=== PATIENT | male | born 1960 | race Caucasian/White ===

== ENCOUNTER 2018-02-08 18:11 | Emergency (ER) | payer OTHER ==
[2018-02-08] MEDS ORDERED: LORazepam INJ* 2 MG/ML 1 ML VIAL IV PUSH ONE (18:51)
[2018-02-08 18:56] LABS: ABS Basophils 0.1 10^3/ul (0-0.2); ABS Eosinophils 0.4 10^3/ul (0-0.6); ABS Lymphocytes 2.2 10^3/ul (1.0-4.8); ABS Monocytes 0.7 10^3/ul (0-0.8); ABS Neutrophils 5.9 10^3/ul (1.5-7.7); ABS Nucleated RBC 0 10^3/ul; Eosinophil % 4.6 % (0-6); Hematocrit 41 % (42-52); Hemoglobin 14.9 g/dl (14.0-18.0); Lymphocyte % 23.6 % (25-47); Mean Corpuscular HGB Conc 36 g/dl (31-36); Mean Corpuscular Hemoglobin 34 pg (27-31); Mean Corpuscular Volume 93 fL (80-94); Mean Platelet Volume 8.1 um3 (7.4-10.4); Nucleated Red Blood Cells % 0; Platelet Count 206 10^3/ul (150-450); Red Blood Count 4.43 10^6/ul (4.00-5.40); Red Cell Distribution Width 13 % (10.5-15); White Blood Count 9.2 10^3/ul (3.5-10.8)
[2018-02-08 19:15] LABS: EGFR Non-African American 78.2 (>60)
[2018-02-08] MEDS ORDERED: Iohexol 300* (CONTRAST) 10 ML SDV IV ONE (19:19)
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
[2018-02-08] MEDS ORDERED: Morphine VIAL* 4 MG/ML VIAL (1 ml vial) IV ONE (19:58)
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
[2018-02-08] MEDS ORDERED: oxyCODONE/Acetamin 5/325 MG* TAB PO ONE (20:53)
--- NOTE | 2018-02-08 21:02 | RAD ---
INDICATION: Right shoulder injury. TECHNIQUE: 4 views of the right shoulder were obtained. There is material or clothing which projects over the shoulders limiting the exam slightly. FINDINGS: The bones are in normal alignment. No fracture is seen. There is mild osteoarthritic change in the acromioclavicular and glenohumeral joints. IMPRESSION: NO EVIDENCE OF FRACTURE.
[2018-02-08 21:34] VITALS: BP 166/90
== END 2018-02-08 21:34 | disposition home or self-care (01) ==
LOC: ED 18:11
DX: M54.2 Cervicalgia (principal); S09.90XA Unspecified injury of head, initial encounter; M25.511 Pain in right shoulder; Z72.0 Tobacco use; V89.2XXA Person injured in unspecified motor-vehicle accident, traffic, initial encounter; Y92.9 Unspecified place or not applicable; R10.30 Lower abdominal pain, unspecified; R21 Rash and other nonspecific skin eruption; Z88.0 Allergy status to penicillin
CPT/HCPCS: 36415; 70450; 71260; 72125; 74177; 80053; 85025; 96374; 96375; 99284; A9270-GY; J2060; Q9967

== ENCOUNTER 2019-09-13 06:09 | Emergency (ER) | payer SELFPAY ==
[2019-09-13] MEDS ORDERED: HYDROcodone/ACETAMIN 5-325 MG* 1 TAB PO ONE (06:26)
--- NOTE | 2019-09-13 07:10 | ED ---
Upper Extremity Pain - HPI Summary HPI Summary: This patient is a 59-year-old male who presents to the ED with a crush injury to the right hand. He states he crushed the hand between a steel bar and a trash dumpster at work. He is endorsing pain to the entire hand, worsening pain to the right thumb. Pain is 9/10, constant and throbbing. Otherwise healthy. Denies blood thinners. Bleeding has stopped and is well controlled on arrival. Tetanus is not UTD. - History of Current Complaint Chief Complaint: EDExtremityUpper Stated Complaint: HAND CRUSHED PER PT Time Seen by Provider: 09/13/19 06:21 Hx Obtained From: Patient Mechanism Of Injury: Other - crush injury Onset/Duration: Started Hours Ago Timing: Constant Severity Initially: Severe Severity Currently: Severe Pain Location: Other: - thumb - Right Character: Aching Aggravating Factor(s): Nothing Alleviating Factor(s): Nothing Associated Signs & Symptoms: Negative: Swelling, Bruising Related History: Occupational Injury, Dominant Hand Right - Risk Factors Non-Orthopedic Risk Factor: Negative DVT Risk Factors: Negative Compartment Syndrome Risk Factors: Pain - Allergies/Home Medications Allergies/Adverse Reactions: Allergies Allergy/AdvReac Type Severity Reaction Status Date / Time nabumetone [From Relafen] Allergy Bleeding Verified 09/13/19 06:11 Penicillins Allergy Rash Verified 09/13/19 06:11 PMH/Surg Hx/FS Hx/Imm Hx Previously Healthy: Yes Endocrine/Hematology History: Denies: Hx Diabetes Cardiovascular History: Denies: Hx Hypertension - Surgical History Surgery Procedure, Year, and Place: RT SHOULDER - Immunization History Hx Pertussis Vaccination: No Immunizations Up to Date: Yes Infectious Disease History: No Infectious Disease History: Denies: Traveled Outside the [place] in Last 30 Days - Family History Known Family History: Positive: Hypertension - Social History Occupation: Unemployed Lives: With Family Alcohol Use: Occasionally Hx Substance Use: No Substance Use Type: Reports: None Hx Tobacco Use: Yes Smoking Status (MU): Heavy Every Day Tobacco Smoker Review of Systems Negative: Fever, Chills, Fatigue, Skin Diaphoresis Negative: Palpitations, Chest Pain Negative: Shortness Of Breath, Cough Genitourinary: Negative Positive: no symptoms reported, see HPI Positive: Arthralgia - right thumb Positive: Other - laceration .5cm to the radial side of the distal tip of the thumb Neurological: Negative All Other Systems Reviewed And Are Negative: Yes Physical Exam Triage Information Reviewed: Yes Vital Signs On Initial Exam: Initial Vitals Temp Pulse Resp BP Pulse Ox 98.1 F 91 20 188/94 95 09/13/19 06:10 09/13/19 06:10 09/13/19 06:10 09/13/19 06:10 09/13/19 06:10 Vital Signs Reviewed: Yes Appearance: Positive: Well-Appearing, Well-Nourished Skin: Positive: Warm, Skin Color Reflects Adequate Perfusion Head/Face: Positive: Normal Head/Face Inspection Eyes: Positive: EOMI, Conjunctiva Clear Neck: Positive: Supple, No Lymphadenopathy Respiratory/Lung Sounds: Positive: Clear to Auscultation, Breath Sounds Present Cardiovascular: Positive: Pulses are Symmetrical in both Upper and Lower Extremities Musculoskeletal: Positive: Other - right distal tip of thumb - nail avulsion with laceration to the radial side Psychiatric: Positive: Affect/Mood Appropriate Procedures - Sedation Patient Received Moderate/Deep Sedation with Procedure: No Diagnostics - Vital Signs Vital Signs Temp Pulse Resp BP Pulse Ox 09/13/19 06:10 98.1 F 91 20 188/94 95 - Laboratory Lab Statement: Any lab studies that have been ordered have been reviewed, and results considered in the medical decision making process. Course/Dx - Course Course Of Treatment: During this course treatment, the patient's evaluated for right thumb injury. This was a crush injury to the distal tip of the R thumb which avulsed the nail bed out. On physical examination, he has a laceration coming from the radial side of the nailbed which measures approximately 0.5 cm in length. Xray obtained which shows a displaced possibly open fracture of the tuft of the distal phalanx of the thumb. Bactrim given. Pain medication given. Cleansed and washed out wound thouroughly. Attempted to suture the radial side of the thumb with lac, but patient eventually refused as was unable to tolerate pain and refused further treatment. Xeroform applied. Thumb dressing applied with splint. Care instructions given. Will f/u with ortho [facility]. Assessment/Plan: f/u with ortho - hand - keep wound cleansed daily and wrapped. Keep thumb with splint applied - Diagnoses Differential Diagnosis/HQI/PQRI: Positive: Fracture (Open) Provider Diagnoses: Open fracture of tuft of distal phalanx of finger - Physician Notifications Instructed by Provider To: Have Pt Call For Appt. - today for appt Discharge ED - Sign-Out/Discharge Documenting (check all that apply): Patient Departure - Discharge Plan Condition: Stable Disposition: HOME Prescriptions: HydroCODONE/Acetamin 10/325 NF [Acushnet 10/325 (NF)] 1 - 2 tab PO SEE INSTRUCTIONS #12 tab MDD 6 Patient Education Materials: Thumb Fracture (ED), Nail Avulsion (ED) Forms: *Work Release Referrals: John Esparza MD [Medical Doctor] - No Primary Care Phys,NOPCP [Primary Care Provider] - Oanh Soriano MD [Medical Doctor] - Additional Instructions: Bactrim twice daily x 3 days Hydrocodone - 1-2 tabs every 6 hours as needed for pain, not to exceed 6 total per day Keep the wound cleansed and clean daily - keep covered Keep splint applied until follow up with orthopedics I have given you a referral - call to make an appt Also, call to make an appt with dermatology - Billing Disposition and Condition Condition: STABLE Disposition: Home
[2019-09-13] MEDS ORDERED: Tetan/Diph/Pertus SYR(Tdap)* 0.5 ML SYR(BOOSTRIX) use SYR contains LATEX IM ONE (07:33)
[2019-09-13 09:03] VITALS: BP 167/96
== END 2019-09-13 09:01 | disposition home or self-care (01) ==
LOC: ED 06:09
DX: S62.521B Displaced fracture of distal phalanx of right thumb, initial encounter for open fracture (principal); W23.0XXA Caught, crushed, jammed, or pinched between moving objects, initial encounter; Y93.89 Activity, other specified; Y92.9 Unspecified place or not applicable; Y99.0 Civilian activity done for income or pay; Z23 Encounter for immunization; Z88.6 Allergy status to analgesic agent; Z88.0 Allergy status to penicillin; F17.200 Nicotine dependence, unspecified, uncomplicated
CPT/HCPCS: 90471; 90715; 99282

== ENCOUNTER 2023-01-10 10:38 | Inpatient (IN) ==
[~2023-01-10 10:38] MED LIST: Iodixanol (CONTRAST) 320 MG/ML 100 ML SDV IV ONE
[2023-01-10 11:10] LABS: ABS Basophils 0.1 10^3/uL (0.0-0.1); ABS Eosinophils 0.3 10^3/uL (0.0-0.5); ABS Monocytes 0.5 10^3/uL (0.0-1.1); ABS Neutrophils 4.8 10^3/uL (1.5-7.6); Eosinophil % 3.5 %; Hematocrit 41.7 % (38-53); Hemoglobin 14.7 g/dL (13.2-16.3); Lymphocyte % 25.9 %; Mean Corpuscular Hemoglobin 32.9 pg (27-33); Mean Corpuscular Hgb Conc 35.3 g/dL (31-36); Mean Corpuscular Volume 93.3 fL (80-97); Mean Platelet Volume 8.1 fL (7.5-11.2); Platelet Count 224 10^3/uL (150-450); Red Blood Count 4.47 10^6/uL (4.06-5.63); Red Cell Distribution Width 13.5 % (12-17); White Blood Count 7.7 10^3/uL (3.6-10.2)
[2023-01-10] MEDS ORDERED: TENECTEPLASE 50 MG VIAL KIT 5 MG/ML (reconstituted) IV ONE ×2 (11:16→11:20)
[2023-01-10 11:18] LABS: Activated Partial Thrombo Time 32.6 seconds (26.0-38.0); INR 1.24 (0.88-1.18)
[2023-01-10] MEDS ORDERED: Labetalol IV 5 MG/ML 20 ml VIAL IV PUSH ONE (11:25)
[2023-01-10] MEDS ORDERED: Labetalol IV 5 MG/ML 20 ml VIAL ONE (11:26)
[2023-01-10 11:45] LABS: Albumin 4.4 g/dL (3.2-5.2); Albumin/Globulin Ratio 1.8 (1-3); Calcium 9.2 mg/dL (8.6-10.3); Creatinine, Serum 1.37 mg/dL (0.67-1.17); Globulin 2.5 g/dL (2-4); HDL Cholesterol 41.8 mg/dL; Total Bilirubin 0.8 mg/dL (0.2-1.0); Total Protein 6.9 g/dL (6.4-8.9); eGFR CKD-EPI 58.7 (>60)
[2023-01-10 12:29] LABS: Urine Appearance Clear; Urine Bilirubin Negative (Negative); Urine Blood Negative (Negative); Urine Color Yellow; Urine Glucose Negative (Negative); Urine Ketones Negative (Negative); Urine Nitrite Negative (Negative); Urine Protein Negative (Negative); Urine Specific Gravity 1.014 (1.002-1.030); Urine Urobilinogen Negative (Negative)
[2023-01-10 13:34] LABS: Phosphorus 4.6 mg/dL (2.5-5.0)
[2023-01-11 04:02] LABS: ABS Basophils 0.1 10^3/uL (0.0-0.1); ABS Eosinophils 0.4 10^3/uL (0.0-0.5); ABS Lymphocytes 2.2 10^3/uL (1.0-4.8); ABS Monocytes 0.6 10^3/uL (0.0-1.1); ABS Neutrophils 4.8 10^3/uL (1.5-7.6); ABS Nucleated RBC 0.01 10^3/ul; Hematocrit 44.2 % (38-53); Hemoglobin 15.6 g/dL (13.2-16.3); Lymphocyte % 27.5 %; Mean Corpuscular Hemoglobin 33.2 pg (27-33); Mean Corpuscular Hgb Conc 35.3 g/dL (31-36); Mean Corpuscular Volume 93.9 fL (80-97); Mean Platelet Volume 7.7 fL (7.5-11.2); Nucleated Red Blood Cells % 0.1 /100 WBC (0.0-0.4); Platelet Count 214 10^3/uL (150-450); Red Blood Count 4.71 10^6/uL (4.06-5.63); Red Cell Distribution Width 13.3 % (12-17); White Blood Count 8.1 10^3/uL (3.6-10.2)
[2023-01-11 04:09] LABS: INR 1.28 (0.88-1.18)
[2023-01-11 04:36] LABS: Magnesium 2.2 mg/dL (1.9-2.7); Phosphorus 4.5 mg/dL (2.5-5.0)
[2023-01-11 07:54] LABS: Calcium 9.4 mg/dL (8.6-10.3); Creatinine, Serum 0.97 mg/dL (0.67-1.17); Potassium 4.5 mmol/L (3.5-5.0); eGFR CKD-EPI 88.8 (>60)
[2023-01-11] MEDS: DULoxetine DR 60 mg CAP PO SCH (08:05)
[2023-01-12 04:09] LABS: ABS Basophils 0.1 10^3/uL (0.0-0.1); ABS Eosinophils 0.4 10^3/uL (0.0-0.5); ABS Monocytes 0.5 10^3/uL (0.0-1.1); ABS Neutrophils 5.1 10^3/uL (1.5-7.6); ABS Nucleated RBC 0.01 10^3/ul; Eosinophil % 5.2 %; Hematocrit 45.2 % (38-53); Hemoglobin 15.9 g/dL (13.2-16.3); Lymphocyte % 24.5 %; Mean Corpuscular Hemoglobin 33.2 pg (27-33); Mean Corpuscular Hgb Conc 35.3 g/dL (31-36); Mean Corpuscular Volume 94.2 fL (80-97); Mean Platelet Volume 8.2 fL (7.5-11.2); Nucleated Red Blood Cells % 0.1 /100 WBC (0.0-0.4); Platelet Count 210 10^3/uL (150-450); Red Cell Distribution Width 13.2 % (12-17); White Blood Count 8.1 10^3/uL (3.6-10.2)
[2023-01-12 04:34] LABS: INR 1.21 (0.88-1.18)
[2023-01-12 04:52] LABS: Magnesium 1.9 mg/dL (1.9-2.7); Phosphorus 3.8 mg/dL (2.5-5.0)
[2023-01-12] MEDS: DULoxetine DR 60 mg CAP PO SCH (07:21)
[2023-01-12] MEDS ORDERED: Dextrose 50% Syringe 50 ml 25 GM/50 ML SYRINGE IV PUSH PRN (08:21)
[2023-01-12 10:29] LABS: Calcium 9.3 mg/dL (8.6-10.3); Creatinine, Serum 1.04 mg/dL (0.67-1.17); Potassium 4.6 mmol/L (3.5-5.0); eGFR CKD-EPI 81.7 (>60)
[2023-01-12] MEDS: Nicotine PATCH 21 MG/24 HR PATCH TRANSDERM SCH (16:40)
[2023-01-13 07:06] LABS: ABS Basophils 0.1 10^3/uL (0.0-0.1); ABS Eosinophils 0.4 10^3/uL (0.0-0.5); ABS Lymphocytes 1.9 10^3/uL (1.0-4.8); ABS Monocytes 0.5 10^3/uL (0.0-1.1); ABS Neutrophils 4.4 10^3/uL (1.5-7.6); Eosinophil % 5.4 %; Hematocrit 45.7 % (38-53); Hemoglobin 16.2 g/dL (13.2-16.3); Lymphocyte % 25.8 %; Mean Corpuscular Hemoglobin 33.6 pg (27-33); Mean Corpuscular Hgb Conc 35.4 g/dL (31-36); Mean Corpuscular Volume 94.9 fL (80-97); Mean Platelet Volume 8.1 fL (7.5-11.2); Platelet Count 196 10^3/uL (150-450); Red Blood Count 4.82 10^6/uL (4.06-5.63); White Blood Count 7.4 10^3/uL (3.6-10.2)
[2023-01-13 07:22] LABS: Calcium 9.3 mg/dL (8.6-10.3); Creatinine, Serum 0.98 mg/dL (0.67-1.17); Phosphorus 3.6 mg/dL (2.5-5.0); Potassium 4.6 mmol/L (3.5-5.0); eGFR CKD-EPI 87.7 (>60)
[2023-01-13 07:36] LABS: INR 1.21 (0.88-1.18)
[2023-01-13] MEDS: DULoxetine DR 60 mg CAP PO SCH (09:01)
[2023-01-13] MEDS: Nicotine PATCH 21 MG/24 HR PATCH TRANSDERM SCH (09:03)
[2023-01-13] MEDS ORDERED: COVID VACC, BIVAL PFIZER-TRIS 30 MCG/0.3 ML SYR IM ONE (12:00)
[2023-01-14 07:10] LABS: Calcium 9.2 mg/dL (8.6-10.3); Creatinine, Serum 0.88 mg/dL (0.67-1.17); Potassium 4.6 mmol/L (3.5-5.0); eGFR CKD-EPI 97.8 (>60)
[2023-01-14] MEDS: DULoxetine DR 60 mg CAP PO SCH (08:51)
[2023-01-14] MEDS: Nicotine PATCH 21 MG/24 HR PATCH TRANSDERM SCH (09:13)
[2023-01-15 06:26] LABS: Calcium 9.1 mg/dL (8.6-10.3); Creatinine, Serum 0.91 mg/dL (0.67-1.17); Potassium 4.7 mmol/L (3.5-5.0); eGFR CKD-EPI 95.9 (>60)
[2023-01-15] MEDS: Nicotine PATCH 21 MG/24 HR PATCH TRANSDERM SCH (08:27)
[2023-01-15] MEDS: DULoxetine DR 60 mg CAP PO SCH (08:29)
[2023-01-16] MEDS: DULoxetine DR 60 mg CAP PO SCH (10:38)
[2023-01-16] MEDS: Nicotine PATCH 21 MG/24 HR PATCH TRANSDERM SCH (10:39)
[2023-01-17] MEDS: Nicotine PATCH 21 MG/24 HR PATCH TRANSDERM SCH (08:09)
[2023-01-17] MEDS: DULoxetine DR 60 mg CAP PO SCH (08:11)
[2023-01-18] MEDS: DULoxetine DR 60 mg CAP PO SCH (08:37)
[2023-01-18] MEDS: Nicotine PATCH 21 MG/24 HR PATCH TRANSDERM SCH (08:41)
[2023-01-19] MEDS: Nicotine PATCH 21 MG/24 HR PATCH TRANSDERM SCH (07:59)
[2023-01-19] MEDS: DULoxetine DR 60 mg CAP PO SCH (07:59)
[2023-01-20] MEDS: DULoxetine DR 60 mg CAP PO SCH (08:09)
[2023-01-20] MEDS: Nicotine PATCH 21 MG/24 HR PATCH TRANSDERM SCH (08:10)
[2023-01-21] MEDS: DULoxetine DR 60 mg CAP PO SCH (09:01)
[2023-01-21] MEDS: Nicotine PATCH 21 MG/24 HR PATCH TRANSDERM SCH (09:01)
[2023-01-21 15:19] VITALS: BP 109/64
== END 2023-01-21 15:15 | DRG 45 ==
LOC: ED 10:38 → SUATTDRO 12:44 → EDHOLD 12:44 → ICU 13:25 → MEDTELE 01-12 22:24
PROVIDERS: ADMIT Internal Medicine Critical Care Medicine; ATTEND Internal Medicine